=== PATIENT | male | born 1975 | race Hispanic/Latino ===

== ENCOUNTER 2016-07-23 12:49 | Day surgery (SDC) | payer SELFPAY ==
[~2016-07-23] VITALS: Ht 172.7 cm; Wt 81.7 kg
[~2016-07-23 12:49] MED LIST: Sodium Chloride LOK Flush 10 mL Syringe IV PRN; fentaNYL-PF 50 mCg/mL 2 mL Inj IVPUSH PRN
[2016-07-23 13:21] VITALS: BP 121/69; PULSE 68; RESP 17; O2SAT 98
[2016-07-23] MEDS: 0.9% Sodium Chloride 1,000 ML IV SCH ×2 (13:22→14:24)
[2016-07-23 14:02] VITALS: BP 104/66; PULSE 75; RESP 12; O2SAT 96
[2016-07-23 14:16] VITALS: BP 113/73; PULSE 70; RESP 12; O2SAT 97
[2016-07-23 14:22] VITALS: BP 109/68; PULSE 73; RESP 12; O2SAT 99
--- NOTE | 2016-07-23 14:25 | ENDO ---
[address] [address] ENDOSCOPY PROCEDURE PATIENT: MARGARITA MCKEON : 1975 MR#: [id number] ADMIT: 07/23/2016 JOB ID: [id number] DATE: 07/23/2016 ENDOSCOPIST: Dr. Donald Avila. PREPROCEDURE DIAGNOSIS: Sigmoid diverticulitis. POSTPROCEDURE DIAGNOSIS: Sigmoid diverticulitis, mild diversion colitis. PROCEDURE: Colonoscopy. MEDICATIONS: 1. Versed 7 mg. 2. Fentanyl 150 mcg. INDICATIONS: The patient is a 40-year-old man who underwent a sigmoid colectomy with loop ileostomy in May for sigmoid diverticulitis with perforation and pelvic abscess. His postoperative recovery was uncomplicated. He underwent a Gastrografin enema to evaluate the anastomosis which showed no evidence of leak. He comes in today for evaluation of his colon prior to planned ileostomy takedown to rule out underlying inflammatory bowel disease or obstruction. After discussion of risks and benefits, he agreed to proceed. FINDINGS: There was mild diffuse diversion colitis. There are some scattered left-sided diverticula. The anastomosis was widely patent and there was no evidence of mass lesion or other mucosal abnormality. DESCRIPTION OF PROCEDURE: Procedural sedation was achieved. The patient was connected to hemodynamic monitoring, pulse oximetry, capnography. After digital rectal examination, the PCF H 180 AL colonoscope was passed under vision through the anastomosis until the ileocecal valve and appendiceal orifice were visualized and photo documented. The scope was carefully withdrawn. There was mild diffuse diversion colitis. The quality of the prep was good. There were no polyps or mucosal abnormalities. There were some scattered left-sided diverticula. His colon anastomosis was widely patent with no nodularity and no masses. The scope was withdrawn and the procedure terminated. He tolerated the entire procedure well. PLANS: We will proceed with planned ileostomy closure and takedown.
== END 2016-07-23 23:59 | disposition home or self-care (01) ==
LOC: END 12:49
PROVIDERS: ATTEND Student in an Organized Health Care Education/Training Program
DX: K57.32 Diverticulitis of large intestine without perforation or abscess without bleeding (principal); K52.9 Noninfective gastroenteritis and colitis, unspecified; Z87.891 Personal history of nicotine dependence

== ENCOUNTER 2016-08-01 05:33 | Inpatient (IN) | payer MEDICAID ==
[2016-08-01] VITALS (19 sets, daily range): BP systolic 111–142; BP diastolic 64–93; PULSE 60–105; RESP 11–20; O2SAT 90–100
[~2016-08-01] VITALS: Ht 172.7 cm; Wt 82.7 kg
[2016-08-01] MEDS: Lactated Ringer's 1,000 ML IV SCH ×4 (05:34→10:37)
[2016-08-01] MEDS: CeFAZolin Inj 2 GM in IV Premix 1 EACH IV SCH ×2 (06:00→07:35)
[2016-08-01] MEDS ORDERED: Bupivacaine Liposome 1.3% 20 mL Inj INFILTRATE ONE (06:00)
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
[2016-08-01] MEDS ORDERED: Lactated Ringer's 500 ML IV PRN (07:44)
[2016-08-01] MEDS ORDERED: Lactated Ringer's 1,000 ML IV SCH (07:44)
[2016-08-01] MEDS ORDERED: Labetalol 5 mg/mL 4 mL Inj IV PRN (07:45)
[2016-08-01] MEDS ORDERED: Dexamethasone 4 mg/mL Inj IVPUSH PRN (07:45)
[2016-08-01] MEDS ORDERED: Atropine 0.4 mg/mL Inj IVPUSH PRN (07:45)
[2016-08-01] MEDS ORDERED: hydrALAZINE 20 mg/mL Inj IVPUSH PRN (07:45)
[2016-08-01] MEDS ORDERED: EPHEDrine Sulfate 50 mg/mL Inj IVPUSH PRN (07:45)
[2016-08-01] MEDS ORDERED: MetoCLOpramide 5 mg/mL 2 mL Inj IVPUSH PRN ×2 (07:45→09:10)
[2016-08-01] MEDS ORDERED: Ondansetron 2 mg/mL 2 mL Inj IVPUSH PRN ×2 (07:45→09:10)
[2016-08-01] MEDS ORDERED: Phenylephrine 10,000 mCg/mL Inj IVPUSH PRN (07:45)
--- NOTE | 2016-08-01 09:19 | PCM.SURGOP ---
Surgical Operative Report Date of Service: Aug 01, 2016 Pre Operative Diagnosis Perforated sigmoid diverticulitis Post Operative Diagnosis Same Procedure: Ileostomy closure Surgeon and Vice President Lending: Surgeon: Donald Avila MD Assistants: Patricia Gerard PA-C Indication for Procedure 41-year-old man who was hospitalized in May with severe perforated sigmoid diverticulitis with pelvic abscess. He underwent sigmoid colon resection with anastomosis with protecting loop ileostomy. He healed without complication. Gastrografin enema demonstrated no evidence of leak from the anastomosis. Colonoscopy showed mild diversion colitis, but no other masses or abnormalities , and again a patent anastomosis. After discussion of risks and benefits, he agreed to proceed with ileostomy closure. Findings: There were minimal adhesions. Procedure Details After smooth induction of general endotracheal anesthesia, he was placed in the supine position. Using a 2-0 silk suture, the ileostomy was oversewn at the level of the skin. He was prepped and draped in wide sterile fashion. A procedural pause was performed according to the SCOAP checklist, and all were found to be in agreement. An elliptical skin incision was made, oriented transversely, around the ileostomy. Dissection was carried down through the superficial subcutaneous tissue with electrocautery until the wall of the ileum was encountered. The loop of ileum was circumferentially dissected free from the surrounding subcutaneous tissue. In the subcutaneous tissue, there were a few adhesions. At the level of the fascia, there were some mild adhesions, which were taken down with a combination of sharp dissection and blunt dissection. A finger sweep revealed no significant palpable intra-abdominal adhesions through the fascial opening. The mucocutaneous junction of the ileostomy was excised using 2 firings of the XI 75 mm stapler on the proximal and distal ends with blue loads.. The short amount of mesentery involved in the mucocutaneous junction was divided with clamps and 2-0 silk suture. The ileostomy was passed off the field for permanent pathology. A stapled [id number], functional end-to-end anastomosis was performed using another firing of the XI 75 mm stapler to create the common channel, and the enterotomies were closed using a TA 60 mm stapler with a blue load. The crotch of the anastomosis was reinforced with a 3 -0 silk Lembert suture. The staple lines were oversewn with interrupted 3-0 silk Lembert sutures. The anastomosis was patent, without evidence of leak assessed by milking enteric fluid across the anastomosis. There was no significant mesenteric defect. The ileum was returned to the abdominal cavity. The rectus fascia was closed transversely using interrupted 0 PDS sutures. The subcutaneous tissue was irrigated and suctioned. 20 mL of liposomal bupivacaine were instilled into the rectus fascia and the subcutaneous tissue. The skin was closed loosely with paul. During the portion of the operation where the staple lines were oversewn, a 3-0 silk SH needle was popped off and was not accounted for, so a plain abdominal x-ray was obtained after skin closure and dressing application. There was no evidence of a needle in the abdominal cavity. Sterile dressings were applied. At the end of the case all needle and sponge counts were correct 2. The patient was awakened from anesthesia without difficulty, and taken to the recovery room in satisfactory condition, having tolerated the procedure well. Complications There were no periprocedural complications identified. Surgical Specimen Removed: Yes Specimen sent to Pathology: Yes Surgical Specimen description: Ileostomy Anesthetic Plan: GA Grafts, Implants: None Output, Estimated Blood Loss: 50 Blood Administration during jaramillo: No Drains: None Catheters: None Donald Avila MD Aug 01, 2016 09:19
[2016-08-01] MEDS: fentaNYL-PF 50 mCg/mL 2 mL Inj IVPUSH PRN ×3 (09:39→10:31)
[2016-08-01] MEDS: HYDROmorphone 1 mg/mL Inj IVPUSH PRN ×2 (09:50→10:08)
--- NOTE | 2016-08-01 10:05 | PCM.ANEP1 ---
Post Anesthesia Phase 1 PACU Phase 1 Assessment Date of Service: Aug 01, 2016 Vital Signs Vital Signs Date Time Temp Pulse Resp B/P Pulse Ox O2 Delivery O2 Flow Rate FiO2 08/01/16 10:00 36.5 68 13 137/81 98 Nasal Cannula 2 08/01/16 09:50 75 11 137/87 100 Nasal Cannula 2 08/01/16 09:40 81 15 128/83 100 Nasal Cannula 2 08/01/16 09:35 87 13 131/92 100 Nasal Cannula 2 08/01/16 09:30 93 16 133/87 95 Nasal Cannula 2 08/01/16 09:25 87 16 133/84 99 Room Air 08/01/16 09:20 102 17 129/89 100 Simple Mask 8 08/01/16 09:18 36.3 105 17 142/93 100 Simple Mask 8 08/01/16 06:01 36.1 60 16 115/70 99 Room Air Anesthetic Administered: GA Level of Alertness: Sleeping, hard to arouse CONWAY's with Equal Strength: Yes Pain: No Nausea or Vomiting: No Airway Device: Oralpharangeal Airway Lungs: Clear to Auscultation, Normal Air Movement Ochoa Torres MD Aug 01, 2016 10:05
[2016-08-01] MEDS ORDERED: HYDROmorphone 1 mg/mL Inj ONE (10:08)
[2016-08-01] MEDS ORDERED: fentaNYL-PF 50 mCg/mL 2 mL Inj ONE (10:08)
[2016-08-01] MEDS ORDERED: Succinylcholine Chloride 20 mg/mL 5 mL Inj ONE (10:21)
[2016-08-01] MEDS ORDERED: Rocuronium 10 mg/mL 5 mL Inj ONE (10:21)
[2016-08-01] MEDS ORDERED: Ondansetron 2 mg/mL 2 mL Inj ONE (10:21)
[2016-08-01] MEDS ORDERED: Propofol 10,000 mCg/mL 20 mL Inj ONE (10:21)
[2016-08-01] MEDS ORDERED: Dexamethasone 4 mg/mL Inj ONE (10:21)
[2016-08-01] MEDS ORDERED: Neostigmine 1 mg/mL 5 mL Inj ONE (10:21)
[2016-08-01] MEDS ORDERED: Glycopyrrolate 0.2 mg/mL 5 mL Inj ONE (10:21)
--- NOTE | 2016-08-01 10:33 | DRSVH ---
PROCEDURE: X-RAY ABDOMEN, ONE VIEW ([id number]) INDICATIONS: ABDOMINAL SURGERY; POSSIBLE FOREIGN BODY TECHNIQUE: One view of the abdomen acquired. COMPARISON: [facility], CT, CT ABD PELVIS W CON, 05/26/2016, 22:40. [facility] [place], CT, CT ABD PELVIS W CON, 05/21/2016, 17:03. [facility], CR, SPINE LUMB 2 OR 3VW, 05/2013, 18:03. FINDINGS: A single image demonstrates the abdomen from the mid liver through the superior pubis and demonstrates laterally nearly to the lateral aspects of the iliac wings. Surgical changes and devices: Right abdominal paul are seen. There is an additional clip seen jus t to the left of the midline within the superior pelvis Bowel: Bowel gas pattern is normal. Soft tissues: No suspicious abdominal calcifications. Visualized solid organ contours appear normal in size. Bones: No suspicious bony lesions. IMPRESSION: No unexpected radiopaque foreign bodies are seen. Postoperative paul and a clip can be seen. Note: The technologist reports that Dr. Avila reviewed this image just after it was taken. Dictated by: Rishi Benedict M.D. on 08/01/2016 at 9:31 Approved by: Rishi Benedict M.D. on 08/01/2016 at 9:31
[2016-08-01] MEDS: Acetaminophen IV 1,000 MG in IV Premix 1 EACH IV SCH ×2 (11:15→17:23)
--- NOTE | 2016-08-01 11:27 | PCM.ANEP2 ---
Post Anesthesia Evaluation ASA/CMS Post Anesthesia VS in Patient's Normal Range?: Yes Resp Stable; Airway Patent?: Yes CV Function & Hydration Stable: Yes Mental Status Recovered?: Yes Pain control Satisfactory?: Yes N/V Control Satisfactory?: Yes Ochoa Torres MD Aug 01, 2016 11:27
[2016-08-01] MEDS: Dextrose 5% Lactated Ringer's 1,000 ML IV SCH (12:57)
[2016-08-01] MEDS: HYDROmorphone 0.5 mg/0.5 mL iSecure Syringe IVPUSH PRN ×3 (12:57→20:13)
--- NOTE | 2016-08-01 13:01 | NUR ---
postop Pt to floor at approx 1245. Pt alert and rates pain 6/10. Dilaudid iv push given. Bandage to abdomen is c/d/i. Iv patent, Urinal at bedside. Ice water started with request to go slow. at bedside. Care transferred to Primary RN Kylah Haq.
[2016-08-01] MEDS ORDERED: Acetaminophen IV 1,000 MG in IV Premix 1 EACH IV SCH (14:30)
[2016-08-01] MEDS ORDERED: 0.9% Sodium Chloride 250 ML ONE (17:32)
[2016-08-01] MEDS: Heparin 5,000 Unit/mL Inj SUBQ SCH (17:38)
[2016-08-01] MEDS: Polyethylene Glycol (PEG) 17 Gm Powder PO SCH (20:13)
[2016-08-02 00:28] VITALS: BP 108/63; PULSE 74; RESP 20; O2SAT 97
[2016-08-02] MEDS: Heparin 5,000 Unit/mL Inj SUBQ SCH ×3 (00:32→16:26)
[2016-08-02] MEDS: Acetaminophen IV 1,000 MG in IV Premix 1 EACH IV SCH ×5 (01:02→23:15)
--- NOTE | 2016-08-02 03:16 | NUR ---
PAIN/ACTIVITY: Pt. resting in bed through the evening. States his pain at rest is tolerable most of the time. When he moves his pain goes up to 9 or 10. Medicated with IV Dilaudid, IV Tylenol and Roxicodone, pt. able to sleep comfortable. He was able to stand at the side of his bed, on the edge of the bed and dangle, then went back to bed. Had some c/o nausea when given IV Dilaudid, given 5 mg of IV Reglan and nausea resolved. No emesis. Dressing is CDI. Voiding per urinal clear pale urine. No BT yet. Denies passing flatus. A & O, VSS. On going care.
[2016-08-02] MEDS: Dextrose 5% Lactated Ringer's 1,000 ML IV SCH ×2 (04:31→16:26)
[2016-08-02 04:35] VITALS: BP 102/60; PULSE 61; RESP 18; O2SAT 95
[2016-08-02 06:47] LABS: BASOPHILS % (AUTO) 0.2 % (0-3); EOSINOPHILS % (AUTO) 0.1 % (0-5); MONOCYTES % (AUTO) 9.9 % (4-12); Mean Corpuscular Hemoglobin 27.8 pg (27.0-35.0); Mean Corpuscular Volume 80.9 fL (81-100); NEUTROPHILS % (AUTO) 68.8 % (40-74); Platelet Count 190 bil/L (150-400)
--- NOTE | 2016-08-02 14:03 | PROG NOTE ---
[address] [address] PROGRESS NOTE PATIENT: MARGARITA MCKEON : 1975 MR#: [id number] ADMIT: 08/01/2016 JOB ID: [id number] DATE: 08/02/2016 SUBJECTIVE: Postop day one, ileostomy closure. The patient is doing well, afebrile with stable vital signs. He is not passing gas, is tolerating liquids. His abdominal examination is benign except for a slight distention and tympany. His ileostomy skin closure site is without signs of infection. LABORATORY DATA: Show a white count of 9, hematocrit 36.4. Normal chemistries and a glucose of 129. IMPRESSION AND PLAN: Doing well. Continue current care, await return of bowel function.
[2016-08-02] MEDS: Polyethylene Glycol (PEG) 17 Gm Powder PO SCH (14:57)
[2016-08-02 15:10] VITALS: BP 113/67; PULSE 61; RESP 18; O2SAT 95
--- NOTE | 2016-08-02 17:54 | NUR ---
Pain patient is alert and oriented X3. Able to make needs known. Received Tylenol IV as ordered for pain, PRN Pain PO medication for Abdomen/surgical site pain 04/21 with effective results. per patient doctor removed dressing to abdomen before lunch. 9 paul clean and intact. Ye lala doctor r/t mild bleeding in between 2nd and 3 rd paul noted with movement or when coughing. Doctor aware and orders lightly dress the site. patient aware. stable vital signs, afebrile. spouse at bed side. Scheduled Miralax given as ordered with no results this shift. Encouraged walking as tolerated and patient walked twice this shift. Bowel tones present in all four quadrants and passing gas. Call light with in reach for safety and verbalize the use of call light. stable mood. Continue to monitor for sign and symptoms of infection at the abdominal site, pain, vital signs, bowel tones, and safety.
[2016-08-02 20:38] VITALS: BP 122/74; PULSE 68; RESP 18; O2SAT 97
[2016-08-03] MEDS: Heparin 5,000 Unit/mL Inj SUBQ SCH ×3 (00:55→16:14)
--- NOTE | 2016-08-03 03:58 | NUR ---
SURGICAL INCISION: On assessment pt's abdominal incision has paul but no completely approximated, pt. states he is afraid to move or cough or take deep breaths because he feels his incision will break open or pulled apart when he does that. Placed a non-stick Telfa secured with foam tape. Pt. denies passing flatus. Encouraged to get up and ambulate. Did not get up tonight. Taking Roxicodone for pain control. A & O. VSS, on going care.
[2016-08-03] MEDS: Acetaminophen IV 1,000 MG in IV Premix 1 EACH IV SCH (05:15)
[2016-08-03] MEDS: Dextrose 5% Lactated Ringer's 1,000 ML IV SCH ×2 (05:17→11:03)
[2016-08-03 06:01] VITALS: BP 110/68; PULSE 65; RESP 18; O2SAT 97
[2016-08-03 08:11] VITALS: BP 116/65; PULSE 65; RESP 16; O2SAT 96
--- NOTE | 2016-08-03 10:53 | PROG NOTE ---
[address] [address] PROGRESS NOTE PATIENT: MARGARITA MCKEON : 1975 MR#: [id number] ADMIT: 08/01/2016 JOB ID: [id number] DATE: 08/03/2016 SUBJECTIVE: Postop day 2 ileostomy closure. He is doing well, afebrile with normal vital signs. He passed a small bowel movement this morning. He has been quite anxious as there has been some fluid and blood that has come out of his ileostomy closure site when he has coughed. PHYSICAL EXAMINATION: On examination, his incision is healing well without sign of infection. There are no labs today. IMPRESSION AND PLAN: He is doing quite well. I have reassured him that he has a tight closure at the fascial level and explained the rationale behind not having the skin closure too tight for the ileostomy closure because of the risk of subcutaneous infection. I have assured him that he can get up and walk around without worries of evisceration. We will Hep-Lock his IV, advance his diet to soft food, make sure that he is tolerating oral pain medicine. If he tolerates oral pain medicine over the next 24 hours, he will be able to be discharged in the morning.
[2016-08-03] MEDS: Polyethylene Glycol (PEG) 17 Gm Powder PO SCH (12:20)
--- NOTE | 2016-08-03 14:27 | NUR ---
POST-OP PROGRESS Oxicodone 10 mg PO has been adequate for pain control. Patient rated his pain as 4-5/10 after his medication, which is tolerable for him. Diet was advanced per orders. Tolerated his lunch. Denies nausea. No emesis noted. Per patient he had a BM this morning. Denies SOB. Ambulated independently in the hallway X 1 this morning. Tolerated activity well. Alivia are CDI. Dressing is in place. Dr. Buck assessed incisional area this morning. Voiding without any problems.
[2016-08-03 16:23] VITALS: BP 117/75; PULSE 65; RESP 17; O2SAT 95
--- NOTE | 2016-08-03 16:24 | NUR ---
Social Work Note: Screen Note Data& Assessment: EMR reviewed. Amarjit Davila is a 41 year old male admitted on 08/01/2016 for Sigmoid Diverticulitis. Pt is self pay and has no primary care physician. Pt lives in [place] with family and is independent at baseline. Pt is currently SBA in her room. No discharge needs identified at this time. SW to continue to follow if any needs arise. Plan: Anticipated discharge home via POV when medically ready. No discharge needs identified at this time. SW to continue to follow if any needs arise. Steph Lange, KARINA, ACM
--- NOTE | 2016-08-03 19:48 | NUR ---
assumed care/activity Received report from Mick REGAN at 1500, assumed care of pt. Pt reports pain 6/10 in abdomen, medicated per prn orders by charge nurse. Pt reports pain down to 4/10 after pain medication. Pt ambulated loop in hallway with at his side, tolerated well. Changed dressing to abd this evening and placed abdominal binder. Call light in reach. Care continues.
[2016-08-03 20:32] VITALS: BP 110/67; PULSE 67; RESP 18; O2SAT 96
--- NOTE | 2016-08-03 23:15 | NUR ---
ACTIVITY: Pt. in room visiting with and daughter and having dinner. Denies pain or nausea. In good spirit today. Stated he ambulated on the hallway today and also had 2 liquid BMs today. Encouraged to ambulate again tonight at any time and to call for assist with ambulation. Has abdominal binder on for comfort. Without the abdominal binder pt. is afraid to move or cough or to take deep breaths, he feels otherwise that the incision is ripping apart. Telfa dressing is CDI. Declined pain medication right now. Pt. is A & O, with all vss. On going care.
[2016-08-04] MEDS: Heparin 5,000 Unit/mL Inj SUBQ SCH ×2 (00:06→08:30)
[2016-08-04 04:26] VITALS: BP 103/62; PULSE 69; RESP 16; O2SAT 96
[2016-08-04] MEDS ORDERED: POLY17PO6 PO (08:48)
[2016-08-04] MEDS ORDERED: OXYC5TAB72 PO (08:48)
[2016-08-04] MEDS ORDERED: Acetaminophen PO (08:48)
--- NOTE | 2016-08-04 08:51 | PCM.DISURG ---
Surgical Discharge Instruction Date of Service Aug 04, 2016 Dates of Hospitalization Date of Hospital Admission Aug 01, 2016 at 12:31 Providers Admitting Physician: Donald Avila MD Primary Care Physician: Nopcp Attending Physician: Donald Avila MD Discharge Diagnosis Discharge Diagnosis 08/04/2016 Post Operative diagnosis Perforated sigmoid diverticulitis Diet Discharge Diet: Other (high-fiber) Activity Discharge Activity-General: Balance rest and activity, No driving while taking narcotic Dressing and Incisional Care Dressing Care: Remove outer dressing after 24 hrs Hygiene: May shower Follow Up Plan Mid-level Provider (F9): Donald Avila MD Follow-up appointment: Weeks (2 ) Call your provider for: Fever, Chills, Increasing abdominal pain, Discharge @ incision, pus discharge Clementine Leija PA-C Aug 04, 2016 08:51
--- NOTE | 2016-08-04 08:55 | PCM.DC.SUR ---
Discharge Summary Date of Service: Aug 04, 2016 Date of Hospital Admission: Aug 01, 2016 at 12:31 Date of Operation(s): 08/01/2016 Date of Discharge: 08/04/2016 Diagnosis at Time of Discharge Perforated sigmoid diverticulitis Problems: Operation Ileostomy closure Brief History and Physical: 41-year-old man who was hospitalized in May with severe perforated sigmoid diverticulitis with pelvic abscess. He underwent sigmoid colon resection with anastomosis with protecting loop ileostomy. He healed without complication. Gastrografin enema demonstrated no evidence of leak from the anastomosis. Colonoscopy showed mild diversion colitis, but no other masses or abnormalities , and again a patent anastomosis. After discussion of risks and benefits, he agreed to proceed with ileostomy closure. Consultants: General surgery: Dr. Donald Avila Hospital Course: Per Dr. Buck's progress Notes Postop day one, ileostomy closure. The patient is doing well, afebrile with stable vital signs. He is not passing gas, is tolerating liquids. His abdominal examination is benign except for a slight distention and tympany. His ileostomy skin closure site is without signs of infection. LABORATORY DATA: Show a white count of 9, hematocrit 36.4. Normal chemistries and a glucose of 129. IMPRESSION AND PLAN: Doing well. Continue current care, await return of bowel function. Postop day 2 ileostomy closure. He is doing well, afebrile with normal vital signs. He passed a small bowel movement this morning. He has been quite anxious as there has been some fluid and blood that has come out of his ileostomy closure site when he has coughed. PHYSICAL EXAMINATION: On examination, his incision is healing well without sign of infection. There are no labs today. IMPRESSION AND PLAN: He is doing quite well. I have reassured him that he has a tight closure at the fascial level and explained the rationale behind not having the skin closure too tight for the ileostomy closure because of the risk of subcutaneous infection. I have assured him that he can get up and walk around without worries of evisceration. We will Hep-Lock his IV, advance his diet to soft food, make sure that he is tolerating oral pain medicine. If he tolerates oral pain medicine over the next 24 hours, he will be able to be discharged in the morning. Pathology: Pending Disposition: Discharge to home Follow-up Plan: Dr. Paniagua 2 weeks ([Acetaminophen]) 325 MG TABLET 975 MG PO Q6 Polyethylene Glycol 3350 (Miralax) 17 Gm Powd.pack 17 GM PO NOON oxyCODONE (oxyCODONE) 5 Mg Tablet 5-10 MG PO Q4H PRN PRN For Moderate Pain Clementine Leija PA-C Aug 04, 2016 08:55
[2016-08-04 12:27] VITALS: BP 117/79; PULSE 64; RESP 16; O2SAT 98
[2016-08-04] MEDS: Polyethylene Glycol (PEG) 17 Gm Powder PO SCH (14:44)
--- NOTE | 2016-08-04 19:06 | NUR ---
Discharge note- Patient up ambulating in hallway. Ordered pain med effective for most of incisional pain. Abd. dressing dry and intact and covered with binder. Tolerating diet and fluids. Discharged to home with family and personal belongings.
--- NOTE | 2016-08-05 11:49 | PATH ---
SURGICAL PATHOLOGY Attending Physician:Albina Butterfield CASE STATUS: Signed Out PATIENT NAME: MARGARITA MCKEON PID: [id number] : 1975 DATE COLLECTED:08/01/2016 15:56 SPECIMEN: Ileum, Biopsy CLINICAL HISTORY: Ileostomy FINAL DIAGNOSIS: Resected Ileostomy Site: Skin and portion of small bowel with nonspecific chronic inflammation and fibrosis. ICD10: Z93.2 GROSS DESCRIPTION: The specimen is received in formalin, labeled with the patient's name, sublabeled as ileostomy and consists of 2 segments of bowel (segment #1: length-1.5 cm, diameter-1.5 cm; segment #2: length-2.2 cm, diameter-2.1 cm) connected to a stoma (2.0 x 1.5 cm) with a rim of skin (thickness-1.7 cm). The resection margins are received stapled and the stoma is sutured closed. The mucosa is etienne and focally red with multiple bright red rubbery polyps (each less than 0.1 cm). The skin is etienne smooth and shiny. No nodules, masses or lesions are identified. Ink code: black, black over orange-resection margin. Section code: (A, B) bowel with stoma, longitudinally sectioned, quality assurance representative. 08/02/16 ICD-9 CODES: CPT CODES: 40074 Electronically Signed Out Boogie Leiva MD [facility] Pathology [facility] [address], [place] [address] Technical component performed at [facility], [facility] [address], [place], [address]
== END 2016-08-04 18:39 | disposition home or self-care (01) | DRG 223 ==
LOC: SAS 05:33 → OSC 12:31
PROVIDERS: ADMIT Student in an Organized Health Care Education/Training Program; ATTEND Student in an Organized Health Care Education/Training Program
PROC: 0WQF0ZZ Repair Abdominal Wall, Open Approach (ICD-10-PCS; 2016-08-01)
PROC: 0DBB0ZZ Excision of Ileum, Open Approach (ICD-10-PCS; principal; 2016-08-01 07:15)
DX: Z43.2 Encounter for attention to ileostomy (principal); Z98.0 Intestinal bypass and anastomosis status